=== PATIENT | male | born 2000 | race Caucasian/White ===

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

== ENCOUNTER 2023-07-01 22:31 | Emergency (ER) | payer OTHER ==
[~2023-07-01] VITALS: Ht 165.1 cm; Wt 84.0 kg
[~2023-07-01 22:31] MED LIST: HYDROCODON-ACE1 EA10 PO
[2023-07-01 23:03] LABS: BASOPHILS 0.7 % (0-2); EOSINOPHILS 0.1 % (0-6); HEMOGLOBIN 16.5 g/dL (12.0-18.0); LYMPHOCYTES 18.4 % (24-44); MCH 29.3 (27-36); MCHC 33.7 g/dl (30-36); MCV 86.9 fl (81-99); MONOCYTES 11.7 % (0-12); NEUTROPHILS 69.1 % (39-80); PLATELET COUNT 297 K/uL (140-440); RBC 5.64 M/ul (4.3-5.7); RDW 12.9 (10.5-15.0)
[2023-07-01 23:24] LABS: ALBUMIN/GLOBULIN RATIO 0.89 (1.1-2.4); ANION GAP 15.6 (7-21); BILIRUBIN, TOTAL 0.8 ng/dL (0.2-1.0); BUN/CREATININE RATIO 11.8 (6.0-28.6); CALCIUM 8.4 mg/dL (8.5-10.1); CREATININE, SERUM 1.44 mg/dL (0.70-1.30); POTASSIUM 3.6 mmol/L (3.5-5.1); PROTEIN, TOTAL 8.5 g/dL (6.4-8.2)
[2023-07-01 23:38] LABS: INFLUENZA B NAA NEGATIVE (NEGATIVE); RESPIRATORY SYNCYTIAL VIR NAA NEGATIVE (NEGATIVE)
[2023-07-01] MEDS ORDERED: CYCLOBENZAPRINE10 MG PO (23:58)
[2023-07-01] MEDS ORDERED: VENTOLIN HFA18 GM INH (23:58)
[2023-07-02 00:01] LABS: LACTIC ACID, BLOOD 0.9 mmol/L (0.4-2.0)
[2023-07-02] MEDS ORDERED: ONDANSETRON ODT8 MG PO (00:01)
[2023-07-02 00:07] LABS: BILIRUBIN, URINE NEGATIVE (negative); BLOOD/HGB, URINE NEGATIVE (Negative); KETONE, URINE >=80 (Negative); LEUK ESTERASE, URINE NEGATIVE (negative); NITRITE, URINE NEGATIVE (negative); PH, URINE 5.5 (5-7)
[2023-07-02 00:30] VITALS: BP 123/83
== END 2023-07-02 00:30 | disposition home or self-care (01) ==
LOC: ED 22:31
PROVIDERS: Family Medicine
DX: U07.1 COVID-19 (principal); Z88.8 Allergy status to other drugs, medicaments and biological substances
CPT/HCPCS: 36415; 71045; 74177; 80053; 81003; 83605; 83690; 85025; 87502; 96361; 96375; 99284-25; A9270; J2270; J2405; J7030; Q9967; U0002